=== PATIENT | female | born 1985 | race Caucasian/White ===

== ENCOUNTER → 2020-10-25 | Outpatient (CLI) | payer OTHER | LOC: RAD 08:51 | PROC: BQ31YZZ Magnetic Resonance Imaging (MRI) of Left Hip using Other Contrast (ICD-10-PCS; principal; 2020-10-25) | DX: S73.192A Other sprain of left hip, initial encounter (principal); M94.252 Chondromalacia, left hip; X58.XXXA Exposure to other specified factors, initial encounter | CPT/HCPCS: 73722; A9577; Q9962 ==